=== PATIENT | female | born 1990 | race African-American/Black ===

== ENCOUNTER 2016-10-04 11:27 | Emergency (ER) | payer SELFPAY ==
[~2016-10-04] VITALS: Ht 162.6 cm; Wt 80.0 kg
[~2016-10-04 11:27] MED LIST: NAPR500 PO; SYNT75TA PO
[2016-10-04 11:32] VITALS: BP 132/60; PULSE 72; RESP 15; TEMP 98; O2SAT 99
--- NOTE | 2016-10-04 11:54 | PD ---
HPI Chief Complaint: Abdominal Pain Time Seen by Provider: 11:53 Travel History International Travel<30 days: No Contact w/Intl Traveler<30days: No Traveled to known affect area: No History of Present Illness HPI Patient is a 26-year-old female presented to emergency room evaluation of abdominal pain and left lower back pain. Patient states this started about an hour prior to arrival. She stated stabbing in nature and a 6 out of 10 at its worst. Currently she reports her pain is better. She denies any nausea, vomiting, fever, chills, change in bowel habits, dysuria, frequency. She reports a history of ovarian cysts with rupture about 2 years ago. She denies any vaginal discharge, her last menstrual cycle was 2 weeks ago. [facility] Past Medical History Anemia: Yes Autoimmune Disease: No Heart Rhythm Problems: Yes (H/O) Cancer: No Cardiovascular Problems: No Diminished Hearing: No Gastrointestinal Disorders: No Genitourinary: No Immune Disorder: No Implanted Vascular Access Dvce: No Musculoskeletal: No Neurologic: No Psychiatric: No Reproductive: No Respiratory: No Thyroid Disease: Yes (GOITER/ HYPOTHYRIOD) ?: Not LMP: AUG 2016 : 0 Past Surgical History Other Surgery: No Social History Alcohol Use: Yes (occ.) Tobacco Use: No Substance Use: No Allergies-Medications (Allergen,Severity, Reaction): Coded Allergies: No Known Allergies (Verified , 09/21/15) Reported Meds & Prescriptions Reported Meds & Active Scripts Active [place] (Hydrocodone-Acetaminophen) 5-325 mg Tab 1 Tab PO Q6H PRN Ibuprofen 600 Mg Tab 600 Mg PO Q6H PRN Naprosyn (Naproxen) 500 Mg Tab 500 Mg PO BID PRN Synthroid 75 mcg (Levothyroxine Sodium) 75 Mcg Tab 1 Tab PO DAILY Review of Systems Except as stated in HPI: all other systems reviewed are Neg General / Constitutional: No: Fever, Chills HENT: No: Headaches Cardiovascular: No: Chest Pain or Discomfort Respiratory: No: Shortness of Breath Gastrointestinal: Positive: Abdominal Pain, No: Nausea, Vomiting, Diarrhea, Changes in Bowel Habits, Loss of Appetite (suprapubic) Genitourinary: No: Frequency, Dysuria, Discharge, Vaginal Bleeding Physical Exam Narrative GENERAL: Well developed, well-nourished, alert female. Resting comfortably in no acute distress. SKIN: Warm and dry. HEAD: Atraumatic. Normocephalic. EYES: Pupils equal and round. No scleral icterus. No injection or drainage. ENT: No nasal bleeding or discharge. Mucous membranes pink and moist. NECK: Trachea midline. No JVD. CARDIOVASCULAR: Regular rate and rhythm. No murmur appreciated. RESPIRATORY: No accessory muscle use. Clear to auscultation. Breath sounds equal bilaterally. GASTROINTESTINAL: Abdomen soft, tender to palpation in suprapubic region, nondistended. Hepatic and splenic margins not palpable. Positive bowel sounds, no CVAT bilaterally. MUSCULOSKELETAL: No obvious deformities. No clubbing. No cyanosis. No edema. NEUROLOGICAL: Awake and alert. No obvious cranial nerve deficits. Motor grossly within normal limits. Normal speech. PSYCHIATRIC: Appropriate mood and affect; insight and judgment normal. Data Data Last Documented VS Vital Signs Date Time Temp Pulse Resp B/P Pulse Ox O2 Delivery O2 Flow Rate FiO2 10/04/16 15:19 77 16 132/65 100 10/04/16 11:32 98.0 Orders Complete Blood Count With Diff (10/04/16 11:50) Comprehensive Metabolic Panel (10/04/16 11:50) Urinalysis - C+S If Indicated (10/04/16 11:50) Us Pelvis Comp Family Independence Case Manager/Non-Preg (10/04/16 ) Ed Urine Pregnancytest Poc (10/04/16 11:50) Ibuprofen (Motrin) (10/04/16 13:45) Labs Laboratory Tests Test 10/04/16 12:00 White Blood Count 4.0 TH/MM3 Red Blood Count 3.96 MIL/MM3 Hemoglobin 9.4 GM/DL Hematocrit 30.3 % Mean Corpuscular Volume 76.6 FL Mean Corpuscular Hemoglobin 23.8 PG Mean Corpuscular Hemoglobin 31.1 % Concent Red Cell Distribution Width 17.1 % Platelet Count 301 TH/MM3 Mean Platelet Volume 7.5 FL Neutrophils (%) (Auto) 42.9 % Lymphocytes (%) (Auto) 44.1 % Monocytes (%) (Auto) 10.5 % Eosinophils (%) (Auto) 1.3 % Basophils (%) (Auto) 1.2 % Neutrophils # (Auto) 1.7 TH/MM3 Lymphocytes # (Auto) 1.8 TH/MM3 Monocytes # (Auto) 0.4 TH/MM3 Eosinophils # (Auto) 0.1 TH/MM3 Basophils # (Auto) 0.0 TH/MM3 CBC Comment AUTO DIFF Differential Comment AUTO DIFF CONFIRMED Ovalocytes 1+ Urine Color COLORLESS Urine Turbidity HAZY Urine pH 7.0 Urine Specific [place] 1.006 Urine Protein NEG mg/dL Urine Glucose (UA) NEG mg/dL Urine Ketones NEG mg/dL Urine Occult Blood NEG Urine Nitrite NEG Urine Bilirubin NEG Urine Urobilinogen LESS THAN 2.0 MG/DL Urine Leukocyte Esterase MOD Urine RBC LESS THAN 1 /hpf Urine WBC 3 /hpf Urine Squamous Epithelial 3 /hpf Cells Urine Bacteria RARE /hpf Microscopic Urinalysis Comment CULT NOT INDICATED Sodium Level 138 MEQ/L Potassium Level 4.0 MEQ/L Chloride Level 106 MEQ/L Carbon Dioxide Level 23.1 MEQ/L Anion Gap 9 MEQ/L Blood Urea Nitrogen 10 MG/DL Creatinine 0.71 MG/DL Estimat Glomerular Filtration 119 ML/MIN Rate Random Glucose 93 MG/DL Calcium Level 8.9 MG/DL Total Bilirubin 0.4 MG/DL Aspartate Amino Transf 15 U/L (AST/SGOT) Alanine Aminotransferase 22 U/L (ALT/SGPT) Alkaline Phosphatase 59 U/L Total Protein 8.6 GM/DL Albumin 3.7 GM/DL MDM Medical Decision Making Medical Screen Exam Complete: Yes Emergency Medical Condition: Yes Interpretation(s) Vital Signs Date Time Temp Pulse Resp B/P Pulse Ox O2 Delivery O2 Flow Rate FiO2 10/04/16 11:32 98.0 72 15 132/60 99 Differential Diagnosis Urinary tract infection versus ovarian cyst versus diverticulitis versus other Narrative Course Patient is a 26-year-old female presenting to emergency for evaluation of abdominal pain that started approximately 1 hour prior to arrival. Patient is tender to palpation superpubic region on exam. Workup initiated in triage, care patient will be transferred to a provider when a medical bed is available. Scripts Hydrocodone-Acetaminophen ([place])5-325 mg Tab1 Tab PO Q6H PRN (PAIN) #12 TAB Ref 0 Prov:Twin Duong MD 10/04/16 Ibuprofen 600 Mg [id number] Mg PO Q6H PRN (Pain/Inflammation) #20 TAB Ref 0 Prov:Twin Duong MD 10/04/16 Erika Pruett Oct 04, 2016 11:54
[2016-10-04 12:28] LABS: AUTOMATED NEUTROPHIL # 1.7 TH/MM3 (1.8-7.7); BASOPHIL % 1.2 % (0.0-2.0); EOSINOPHIL # 0.1 TH/MM3 (0-0.4); EOSINOPHIL % 1.3 % (0.0-4.0); HEMATOCRIT 30.3 % (35.0-46.0); LYMPH % 44.1 % (9.0-44.0); LYMPHOCYTE # 1.8 TH/MM3 (1.0-4.8); MEAN CELL VOLUME 76.6 FL (80.0-100.0); MEAN CORPUSCULAR HEMOGLOBIN 23.8 PG (27.0-34.0); MEAN CORPUSCULAR HGB CONC 31.1 % (32.0-36.0); MONO % 10.5 % (0.0-8.0); NEUT % 42.9 % (16.0-70.0); PLATELET COUNT 301 TH/MM3 (150-450); RED BLOOD COUNT 3.96 MIL/MM3 (4.00-5.30); RED CELL DISTRIBUTION WIDTH 17.1 % (11.6-17.2)
[2016-10-04 12:32] LABS: HEMO FLAGS AUTO DIFF
[2016-10-04 12:36] LABS: BACTERIA, URINE RARE /hpf; BLOOD, URINE NEG (NEG); COMMENT (UR) CULT NOT INDICATED; CULTURE IF INDICATED CULT NOT INDICATED; GLUCOSE,URINE NEG (NEG); KETONE, URINE NEG (NEG); NITRITE,URINE NEG (NEG); SQUAMOUS EPITHELIAL CELL URINE 3 /hpf (0-5); URINE COLOR COLORLESS (YELLW/STRAW)
[2016-10-04 12:49] LABS: ANION GAP 9 MEQ/L (5-15); AST (GOT) 15 U/L (15-37); BICARBONATE 23.1 MEQ/L (21.0-32.0); BLOOD UREA NITROGEN 10 MG/DL (7-18); CHLORIDE 106 MEQ/L (98-107); GLOMERULAR FILTRATION RATE 119 ML/MIN (>89); SODIUM (NA) 138 MEQ/L (136-145)
[2016-10-04 12:53] LABS: ALKALINE PHOSPHATASE 59 U/L (45-117); ALT (GPT) 22 U/L (10-53); TOTAL BILIRUBIN ADULT 0.4 MG/DL (0.2-1.0)
[2016-10-04 13:10] LABS: OVALOCYTES 1+ (NORMAL); SCAN/DIFF AUTO DIFF CONFIRMED
[2016-10-04] MEDS ORDERED: IBUPROFEN 600 MG TAB PO ONE (13:45)
--- NOTE | 2016-10-04 13:57 | RADRPT ---
EXAM DATE/TIME: 10/04/2016 13:03 [place] COMPARISON: US PELVIS,COMP,W DOPPLER, May 23, 2015, 7:12. CT ABDOMEN & PELVIS W CONTRAST, September 21, 2015, 3:44. INDICATIONS : Lower back and midline pelvic pain. MEDICAL HISTORY : Hypothyroidism. Goiter. Ovarian cyst. SURGICAL HISTORY : None. ENCOUNTER: Initial ACUITY: 1 day PAIN SCORE: 4/10 LOCATION: Bilateral pelvis MEASUREMENTS: UTERUS: 12.1 x 5.7 x 4.7 cm ENDOMETRIAL STRIPE: 15 mm RIGHT OVARY: 4.0 x 4.0 x 4.9 cm LEFT OVARY: 3.9 x 2.7 x 2.5 cm FINDINGS: UTERUS: The myometrium has homogeneous echotexture without mass.There is a 1.1 cm nabothian cyst seen. The u terus is retroverted. RIGHT OVARY: There is a 4.1 x 3.1 x 2.8 cm complex cystic mass of the right ovary. LEFT OVARY: Ovary contains no mass or significant cystic lesion. MISCELLANEOUS: There is a small amount of free fluid. CONCLUSION: 4.1 cm complex mass the right ovary. This is nonspecific. It likely represents a benign process such as a hemorrhagic cyst. It should be followed with ultrasound in 6-12 weeks. Sam Anderson MD on October 04, 2016 at 13:47 Board Certified Radiologist. This report was verified electronically.
[2016-10-04] MEDS ORDERED: IBUP-232 PO (14:37)
[2016-10-04] MEDS ORDERED: NORC5TAB PO (14:37)
--- NOTE | 2016-10-04 14:37 | PD ---
Physical Exam Date Seen by Provider: Oct 04, 2016 Time Seen by Provider: 14:35 Narrative 26-year-old Ana female who was initially evaluated in triage by the mid-level provider. Please refer to the initial history, physical, diagnostic evaluation, and treatment modality plan. Patient was signed out with ultrasound of the pelvis pending for possible ovarian cyst. Data Data Last Documented VS Vital Signs Date Time Temp Pulse Resp B/P Pulse Ox O2 Delivery O2 Flow Rate FiO2 10/04/16 11:32 98.0 72 15 132/60 99 Orders Complete Blood Count With Diff (10/04/16 11:50) Comprehensive Metabolic Panel (10/04/16 11:50) Urinalysis - C+S If Indicated (10/04/16 11:50) Us Pelvis Comp Treating Machine Operator/Non-Preg (10/04/16 ) Ed Urine Pregnancytest Poc (10/04/16 11:50) Ibuprofen (Motrin) (10/04/16 13:45) Labs Laboratory Tests Test 10/04/16 12:00 White Blood Count 4.0 TH/MM3 Red Blood Count 3.96 MIL/MM3 Hemoglobin 9.4 GM/DL Hematocrit 30.3 % Mean Corpuscular Volume 76.6 FL Mean Corpuscular Hemoglobin 23.8 PG Mean Corpuscular Hemoglobin 31.1 % Concent Red Cell Distribution Width 17.1 % Platelet Count 301 TH/MM3 Mean Platelet Volume 7.5 FL Neutrophils (%) (Auto) 42.9 % Lymphocytes (%) (Auto) 44.1 % Monocytes (%) (Auto) 10.5 % Eosinophils (%) (Auto) 1.3 % Basophils (%) (Auto) 1.2 % Neutrophils # (Auto) 1.7 TH/MM3 Lymphocytes # (Auto) 1.8 TH/MM3 Monocytes # (Auto) 0.4 TH/MM3 Eosinophils # (Auto) 0.1 TH/MM3 Basophils # (Auto) 0.0 TH/MM3 CBC Comment AUTO DIFF Differential Comment AUTO DIFF CONFIRMED Ovalocytes 1+ Urine Color COLORLESS Urine Turbidity HAZY Urine pH 7.0 Urine Specific [place] 1.006 Urine Protein NEG mg/dL Urine Glucose (UA) NEG mg/dL Urine Ketones NEG mg/dL Urine Occult Blood NEG Urine Nitrite NEG Urine Bilirubin NEG Urine Urobilinogen LESS THAN 2.0 MG/DL Urine Leukocyte Esterase MOD Urine RBC LESS THAN 1 /hpf Urine WBC 3 /hpf Urine Squamous Epithelial 3 /hpf Cells Urine Bacteria RARE /hpf Microscopic Urinalysis Comment CULT NOT INDICATED Sodium Level 138 MEQ/L Potassium Level 4.0 MEQ/L Chloride Level 106 MEQ/L Carbon Dioxide Level 23.1 MEQ/L Anion Gap 9 MEQ/L Blood Urea Nitrogen 10 MG/DL Creatinine 0.71 MG/DL Estimat Glomerular Filtration 119 ML/MIN Rate Random Glucose 93 MG/DL Calcium Level 8.9 MG/DL Total Bilirubin 0.4 MG/DL Aspartate Amino Transf 15 U/L (AST/SGOT) Alanine Aminotransferase 22 U/L (ALT/SGPT) Alkaline Phosphatase 59 U/L Total Protein 8.6 GM/DL Albumin 3.7 GM/DL [facility] Medical Record Reviewed: Yes Supervised Visit with CHINO: Yes Interpretation(s) Ultrasound of the pelvis complete reveals a 4.1 cm complex mass of the right ovary. This is nonspecific. It likely represents a benign process such as hemorrhagic cyst. It should be followed with ultrasound in 6-12 weeks. Laboratory Tests Test 10/04/16 12:00 White Blood Count 4.0 TH/MM3 Red Blood Count 3.96 MIL/MM3 Hemoglobin 9.4 GM/DL Hematocrit 30.3 % Mean Corpuscular Volume 76.6 FL Mean Corpuscular Hemoglobin 23.8 PG Mean Corpuscular Hemoglobin 31.1 % Concent Red Cell Distribution Width 17.1 % Platelet Count 301 TH/MM3 Mean Platelet Volume 7.5 FL Neutrophils (%) (Auto) 42.9 % Lymphocytes (%) (Auto) 44.1 % Monocytes (%) (Auto) 10.5 % Eosinophils (%) (Auto) 1.3 % Basophils (%) (Auto) 1.2 % Neutrophils # (Auto) 1.7 TH/MM3 Lymphocytes # (Auto) 1.8 TH/MM3 Monocytes # (Auto) 0.4 TH/MM3 Eosinophils # (Auto) 0.1 TH/MM3 Basophils # (Auto) 0.0 TH/MM3 CBC Comment AUTO DIFF Differential Comment AUTO DIFF CONFIRMED Ovalocytes 1+ Urine Color COLORLESS Urine Turbidity HAZY Urine pH 7.0 Urine Specific [place] 1.006 Urine Protein NEG mg/dL Urine Glucose (UA) NEG mg/dL Urine Ketones NEG mg/dL Urine Occult Blood NEG Urine Nitrite NEG Urine Bilirubin NEG Urine Urobilinogen LESS THAN 2.0 MG/DL Urine Leukocyte Esterase MOD Urine RBC LESS THAN 1 /hpf Urine WBC 3 /hpf Urine Squamous Epithelial 3 /hpf Cells Urine Bacteria RARE /hpf Microscopic Urinalysis Comment CULT NOT INDICATED Sodium Level 138 MEQ/L Potassium Level 4.0 MEQ/L Chloride Level 106 MEQ/L Carbon Dioxide Level 23.1 MEQ/L Anion Gap 9 MEQ/L Blood Urea Nitrogen 10 MG/DL Creatinine 0.71 MG/DL Estimat Glomerular Filtration 119 ML/MIN Rate Random Glucose 93 MG/DL Calcium Level 8.9 MG/DL Total Bilirubin 0.4 MG/DL Aspartate Amino Transf 15 U/L (AST/SGOT) Alanine Aminotransferase 22 U/L (ALT/SGPT) Alkaline Phosphatase 59 U/L Total Protein 8.6 GM/DL Albumin 3.7 GM/DL Differential Diagnosis Differential diagnosis includes ovarian cyst, ovarian torsion, PID, cervicitis, UTI, diverticulitis, nephrolithiasis, pyelonephritis. Narrative Course I, Dr. Duong, have reviewed the advance practice practitioner's documentation and am in agreement, met with the patient face to face, made the diagnosis, and the medical decision making was done by me. *My assessment and Findings: The patient is a 26-year-old Ana female who was initially evaluated in triage by the mid-level provider, please refer to the initial history, physical, diagnostic evaluation, treatment modality plan. Patient claims of intermittent abdominal pain is located the suprapubic region and radiates to the back. She does have a history of similar pain in the past secondary ovarian cyst. The patient states she is currently not sexually active, denies any vaginal bleeding or vaginal discharge. She denies any associated dysuria, frequency, or urgency. Abdominal exam reveals minimal tenderness of the suprapubic region, but no rebound tenderness, guarding , rigidity. The patient had no CVA tenderness. Patient's bedside UA test was negative, laboratory evaluation and UA are negative. Ultrasound reveals right ovarian cyst. Patient be discharged home with pain medications and a copy of her ultrasound report for repeat ultrasound approximately 3-4 months. She is advised to follow-up with a primary physician. Diagnosis Primary Impression: Ovarian cyst Qualified Code: N83.201 - Cyst of right ovary Patient Instructions: General Instructions Additional Instruction: Please provide the patient a copy of her ultrasound results and lab results at discharge. Follow-up with her primary physician. Return if symptoms worsen or progress. Med/Other Pt SpecificInfo: Prescription(s) given Scripts Hydrocodone-Acetaminophen ([place])5-325 mg Tab1 Tab PO Q6H PRN (PAIN) #12 TAB Ref 0 Prov:Twin Duong MD 10/04/16 Ibuprofen 600 Mg [id number] Mg PO Q6H PRN (Pain/Inflammation) #20 TAB Ref 0 Prov:Twin Duogn MD 10/04/16 Disposition: 01 DISCHARGE HOME Condition: Stable Twin Duong MD Oct 04, 2016 14:37
[2016-10-04 15:19] VITALS: BP 132/65
== END 2016-10-04 15:21 | disposition home or self-care (01) ==
LOC: NEPC 11:27
DX: N83.201 Unspecified ovarian cyst, right side (principal); M54.5 Low back pain
CPT/HCPCS: 76856; 80053; 81001; 84703; 85025

== ENCOUNTER 2017-07-26 01:34 | Emergency (ER) | payer SELFPAY ==
[~2017-07-26] VITALS: Ht 162.6 cm; Wt 90.0 kg
[~2017-07-26 01:34] MED LIST changes: +IBUP-232 PO; +NORC5TAB PO
[2017-07-26 01:37] VITALS: BP 126/73; PULSE 95; RESP 16; TEMP 98.6; O2SAT 100
[2017-07-26] MEDS ORDERED: SULFAMETHOXAZOLE-TRIMETHOPRIM DS 800-160 MG TAB PO ONE (02:15)
[2017-07-26] MEDS ORDERED: TETANUS/DIPHTHERIA TOXOID ADULT 0.5 ML VIAL IM ONE (02:15)
[2017-07-26] MEDS ORDERED: BACT800T5 PO (02:16)
[2017-07-26] MEDS ORDERED: DICL75TA PO (02:16)
--- NOTE | 2017-07-26 02:22 | PD ---
HPI Chief Complaint: Skin Problem Time Seen by Provider: 02:12 Travel History International Travel<30 days: No Contact w/Intl Traveler<30days: No Traveled to known affect area: No History of Present Illness HPI 27-year-old black female presents to emergency department with complaints of pain and swelling to her right great toe. She states that this is been present now for the past week. Her she's had been rubbing on her toe. It has now become swollen and red. There is a small amount of drainage. Symptoms are moderate. Some relief with elevation. Worsened with walking and running. She has not had the 10 shot over 5 years. [facility] Past Medical History Narrative Medical Hypothyroidism Anemia: Yes Autoimmune Disease: No Heart Rhythm Problems: Yes (H/O) Cancer: No Cardiovascular Problems: No Diminished Hearing: No Gastrointestinal Disorders: No Genitourinary: No Immune Disorder: No Implanted Vascular Access Dvce: No Musculoskeletal: No Neurologic: No Psychiatric: No Reproductive: No Respiratory: No Thyroid Disease: Yes (HYPOTHYRIOD) Tetanus Vaccination: > 5 Years Influenza Vaccination: No ?: Not LMP: 07/19/2017 : 0 Past Surgical History Surgical History: No Previous Surgery Other Surgery: No Social History Alcohol Use: Yes (occ.) Tobacco Use: No Substance Use: No Allergies-Medications (Allergen,Severity, Reaction): Coded Allergies: No Known Allergies (Verified Adverse Reaction, Unknown, 07/26/17) Reported Meds & Prescriptions Reported Meds & Active Scripts Active Diclofenac Sodium DR (Diclofenac Sodium) 75 Mg Tabdr 75 Mg PO BID Bactrim DS (Sulfamethoxazole-Trimethoprim) 800-160 Mg Tab 1 Tab PO BID [place] (Hydrocodone-Acetaminophen) 5-325 mg Tab 1 Tab PO Q6H PRN Ibuprofen 600 Mg Tab 600 Mg PO Q6H PRN Naprosyn (Naproxen) 500 Mg Tab 500 Mg PO BID PRN Synthroid 75 mcg (Levothyroxine Sodium) 75 Mcg Tab 1 Tab PO DAILY Review of Systems General / Constitutional: No: Fever Eyes: No: Visual changes HENT: No: Headaches Cardiovascular: No: Chest Pain or Discomfort Respiratory: No: Shortness of Breath Gastrointestinal: No: Abdominal Pain Genitourinary: No: Dysuria Musculoskeletal: Positive: Edema, Pain Skin: Positive Rash Neurologic: No: Weakness Psychiatric: No: Depression Endocrine: No: Polydipsia Hematologic/Lymphatic: No: Easy Bruising Physical Exam Narrative GENERAL: This is a well-nourished, well-developed patient, in no apparent distress. SKIN: No rashes, ecchymoses or lesions. Warm and dry. HEAD: Atraumatic. Normocephalic. EYES: PERRL, EOMI, no discharge or injection. No scleral icterus. EARS: Clear NOSE: Nasal turbinates appear normal. THROAT: Mucosa pink and moist. Airway patent. NECK: Trachea midline. supple, moves head freely. LUNGS: Clear to auscultation. CV: Regular in rhythm. ABDOMEN: Soft nontender. EXT: No clubbing cyanosis or edema. Examination of the right great toe reveals swelling to the dorsum. There is a small area of fluctuance, tenderness, erythema with an open area of pus. There is no involvement of the bone, nail or joint. She is able to extend and flex. This appears to be a superficial infected blister Data Data Last Documented VS Vital Signs Date Time Temp Pulse Resp B/P (MAP) Pulse Ox O2 Delivery O2 Flow Rate FiO2 07/26/17 01:37 98.6 95 16 126/73 (90) 100 Orders Orders Sulfamet-Trimeth Ds 800-160 Mg (Bactrim (07/26/17 02:15) Tetanus/Diphtheria Tox Adult (Tetanus/Di (07/26/17 02:15) Ed Discharge Order (07/26/17 02:16) MDM Medical Decision Making Medical Screen Exam Complete: Yes Emergency Medical Condition: Yes Medical Record Reviewed: Yes Differential Diagnosis MDM: High Differential diagnoses: Abscess, folliculitis, cellulitis, lymphangitis, abrasion, contact dermatitis Narrative Course Patient's given tetanus immunization, Bactrim DS by mouth. Dressing applied. This is right great toe infected blister Diagnosis Primary Impression: Infected blister of great toe of right foot Qualified Codes: S90.421A - Blister (nonthermal), right great toe, initial encounter; L08.9 - Local infection of the skin and subcutaneous tissue, unspecified Patient Instructions: General Instructions Additional Instructions: Rest. Elevation. keep clean and dry. Epsom salts soaks 3 times daily Daily wound care with soap, water and Neosporin. Diclofenac and Bactrim DS. Follow-up with a forestry contractor or primary care doctor in one week. Return to the ER for any problems. Med/Other Pt SpecificInfo: Prescription(s) given Scripts Diclofenac Sodium DR (Diclofenac Sodium DR) 75 Mg Tabdr 75 MG PO BID, #14 TAB 0 Refills Prov: Bear York MD 07/26/17 Sulfamethoxazole-Trimethoprim (Bactrim DS) 800-160 Mg Tab 1 TAB PO BID for Infection, #14 TAB 0 Refills Prov: Bear York MD 07/26/17 Disposition: 01 DISCHARGE HOME Condition: Stable Frankie Sahu Jul 26, 2017 02:22
== END 2017-07-26 02:37 | disposition home or self-care (01) ==
LOC: NEPD 01:34
DX: S90.421A Blister (nonthermal), right great toe, initial encounter (principal); L08.9 Local infection of the skin and subcutaneous tissue, unspecified; W22.8XXA Striking against or struck by other objects, initial encounter; E03.9 Hypothyroidism, unspecified; Z23 Encounter for immunization
CPT/HCPCS: 90471; 90714

== ENCOUNTER 2017-08-21 00:53 | Emergency (ER) | payer SELFPAY ==
[~2017-08-21] VITALS: Ht 162.6 cm; Wt 86.2 kg
[~2017-08-21 00:53] MED LIST changes: +BACT800T5 PO; +DICL75TA PO
[2017-08-21 01:00] VITALS: BP_SYST 122; BP_SYST 136; BP_DIAS 75; BP_DIAS 87; PULSE 73; PULSE 79; RESP 12; RESP 14; TEMP 98.1; O2SAT 98; O2SAT 99
[2017-08-21] MEDS ORDERED: LEVO.075 PO (01:49)
--- NOTE | 2017-08-21 02:24 | PD ---
HPI Chief Complaint: Skin Problem Time Seen by Provider: 02:19 Travel History International Travel<30 days: No Contact w/Intl Traveler<30days: No Traveled to known affect area: No History of Present Illness HPI 27-year-old female with 2 days of pruritic rash to both hands. 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 Patient denies any known new glove materials or products or new detergents. Patient denies any other rash. Patient denies any urticaria lip tongue or throat swelling shortness of breath wheezing near syncope syncope dizziness nausea vomiting abdominal pain or abdominal cramping. Patient states she is taking no medications for symptoms. Patient states due to persistent pruritus and spreading of rash to the dorsum and digits of her hands bilaterally she decided to come to the emergency room. Patient denies . Last period was August 02 and normal for her. No new foods detergents lotions creams soaps gloves linens or any known allergens. PFSH Past Medical History Narrative Medical Anemia history of murmur hypothyroidism occasional alcohol use; nursing notes reviewed Anemia: Yes Autoimmune Disease: No Heart Rhythm Problems: Yes (H/O) Cancer: No Cardiovascular Problems: No Diminished Hearing: No Gastrointestinal Disorders: No Genitourinary: No Immune Disorder: No Implanted Vascular Access Dvce: No Musculoskeletal: No Neurologic: No Psychiatric: No Reproductive: No Respiratory: No Thyroid Disease: Yes (HYPOTHYRIOD) Tetanus Vaccination: < 5 Years Influenza Vaccination: Yes ?: Not LMP: 07/31/17 : 0 Past Surgical History Surgical History: No Previous Surgery Other Surgery: No Social History Alcohol Use: Yes (occ.) Tobacco Use: No Substance Use: No Allergies-Medications (Allergen,Severity, Reaction): Coded Allergies: No Known Allergies (Verified Adverse Reaction, Unknown, 08/21/17) Reported Meds & Prescriptions Reported Meds & Active Scripts Active Reported Synthroid (Levothyroxine Sodium) 75 Mcg Tab 75 Mcg PO DAILY Review of Systems Except as stated in HPI: all other systems reviewed are Neg Physical Exam Narrative GENERAL: Well-developed well-nourished female in no acute distress no respiratory distress; no stridor no hoarseness. SKIN: Warm and dry. No vesicles no pustules no petechia no purpura no urticaria no excoriation no erythema HEAD: Normocephalic. EYES: No scleral icterus. No injection or drainage. ENT: Airway is patent NECK: Supple, trachea midline. No JVD or lymphadenopathy. CARDIOVASCULAR: Regular rate and rhythm without murmurs, gallops, or rubs. RESPIRATORY: Breath sounds equal bilaterally. No accessory muscle use. Data Data Last Documented VS Vital Signs Date Time Temp Pulse Resp B/P (MAP) Pulse Ox O2 Delivery O2 Flow Rate FiO2 08/21/17 01:00 98.1 79 14 122/75 (91) 99 Orders Orders Prednisone (Deltasone) (08/21/17 02:30) Diphenhydramine (Benadryl) (08/21/17 02:30) Famotidine (Pepcid) (08/21/17 02:30) MDM Medical Decision Making Medical Screen Exam Complete: Yes Emergency Medical Condition: Yes Medical Record Reviewed: Yes Differential Diagnosis Pruritus, contact dermatitis, allergic dermatitis Narrative Course Patient with contact/allergic dermatitis with drying of skin to the dorsum of the hands bilaterally and proximal digits otherwise disease are neurovascular tendon intact palms are spared no vesicles no pustules no petechia no purpura no urticaria; patient given one-time dose of prednisone 20 mg by mouth Benadryl 50 mg by mouth and Pepcid 20 mg by mouth Patient is stable for outpatient management and follow-up with primary care provider Diagnosis Primary Impression: Allergic dermatitis Referrals: [facility] call for appointment Car Wrecker call for appointment Patient Instructions: General Instructions Departure Forms: Tests/Procedures, Work Release Special Instructions: No work times one day Additional Instructions: Take medication as prescribed Take Benadryl or Zyrtec per package directions for itching Takes Zantac 150 twice daily for 7 days Follow-up with primary care provider/with a health or manager material Return to the emergency department for any concerns or change condition No work times one day Med/Other Pt SpecificInfo: Prescription(s) given Scripts Methylprednisolone Dosepak (Medrol Dosepak) 4 Mg Dspk 4 MG PO DIRECTED, #1 DSPK 0 Refills Per Pharmacist direction Prov: Gissell Medellin MD 08/21/17 Disposition: 01 DISCHARGE HOME Condition: Stable Gissell Medellin MD Aug 21, 2017 02:24
[2017-08-21] MEDS ORDERED: MEDR4PAK PO (02:25)
[2017-08-21] MEDS ORDERED: diphenhydrAMINE HCL 50 MG CAP PO ONE (02:30)
[2017-08-21] MEDS ORDERED: predniSONE 20 MG TAB PO ONE (02:30)
[2017-08-21] MEDS ORDERED: FAMOTIDINE 20 MG TAB PO ONE (02:30)
== END 2017-08-21 02:41 | disposition home or self-care (01) ==
LOC: PHED 00:53
DX: L23.9 Allergic contact dermatitis, unspecified cause (principal); E03.9 Hypothyroidism, unspecified
CPT/HCPCS: 99283; J7512; Q0163

== ENCOUNTER 2017-10-08 22:14 | Emergency (ER) | payer SELFPAY ==
[~2017-10-08] VITALS: Ht 162.6 cm; Wt 88.0 kg
[~2017-10-08 22:14] MED LIST changes: -BACT800T5 PO; -DICL75TA PO; -IBUP-232 PO; +LEVO.075 PO; +MEDR4PAK PO; -NAPR500 PO; -NORC5TAB PO; -SYNT75TA PO
[2017-10-08 22:32] VITALS: BP 117/61; PULSE 97; RESP 20; TEMP 98.5; O2SAT 100
--- NOTE | 2017-10-08 23:10 | PD ---
HPI Chief Complaint: Pain: Acute or Chronic Time Seen by Provider: 23:05 Travel History International Travel<30 days: No Contact w/Intl Traveler<30days: No Traveled to known affect area: No History of Present Illness HPI 27-year-old female presents for evaluation of right foot pain. Symptoms started 1 week ago. She describes it as a pressure along the lateral aspect of the right foot which is reproduced when walking. She reports that she has to walk a lot at work. She denies any injury. She denies any pain in the right ankle, calf, thigh or knee. She denies any numbness or tingling. No other complaints. PFSH Past Medical History Medical History: Denies Significant Hx Anemia: Yes Autoimmune Disease: No Heart Rhythm Problems: Yes (H/O) Cancer: No Cardiovascular Problems: No Diminished Hearing: No Gastrointestinal Disorders: No Genitourinary: No Immune Disorder: No Implanted Vascular Access Dvce: No Musculoskeletal: No Neurologic: No Psychiatric: No Reproductive: No Respiratory: No Thyroid Disease: Yes (HYPOTHYRIOD) ?: Not LMP: 09/20/17 : 0 Past Surgical History Surgical History: No Previous Surgery Other Surgery: No Social History Alcohol Use: Yes (occ.) Tobacco Use: No Substance Use: No Allergies-Medications (Allergen,Severity, Reaction): Coded Allergies: No Known Allergies (Verified Adverse Reaction, Unknown, 08/21/17) Reported Meds & Prescriptions Reported Meds & Active Scripts Active Reported Synthroid (Levothyroxine Sodium) 75 Mcg Tab 75 Mcg PO DAILY Review of Systems Musculoskeletal: Positive: Pain Skin: Positive Other (Denies open wounds) Neurologic: No: Paresthesia Physical Exam Narrative GENERAL: Well-nourished female no acute distress SKIN: Warm and dry. No bruising or soft tissue swelling Extremities: There is mild tenderness to palpation along the lateral margin of the right foot. There is no range of motion limitation, no bruising or soft tissue swelling. Distal sensation, pulses preserved. Data Data Last Documented VS Vital Signs Date Time Temp Pulse Resp B/P (MAP) Pulse Ox O2 Delivery O2 Flow Rate FiO2 10/08/17 22:32 98.5 97 20 117/61 (79) 100 Orders Orders Foot, Complete ([id number]) (10/08/17 ) [facility] Medical Decision Making Medical Screen Exam Complete: Yes Emergency Medical Condition: Yes Medical Record Reviewed: Yes Differential Diagnosis Tendinitis, plantar fasciitis, metatarsal stress fracture Narrative Course X-ray imaging was obtained revealing no acute abnormalities. I suspect the patient has right foot pain secondary to walking at work, likely a tendinitis. Recommended avoiding activities that exacerbate the pain. She is stable for discharge. Diagnosis Primary Impression: Foot pain Additional Instructions: Avoid activities that exacerbate this pain. Ice the affected area 3 times a day 20 minutes at a time, particularly after activity. Take Tylenol or Motrin for pain. Follow-up with primary care physician as needed and return for any emergent medical conditions. Med/Other Pt SpecificInfo: No Change to Meds Disposition: 01 DISCHARGE HOME Condition: Stable [place] Wiley Oct 08, 2017 23:10
--- NOTE | 2017-10-09 00:01 | RADRPT ---
EXAM DATE/TIME: 10/08/2017 23:23 [place] COMPARISON: No previous studies available for comparison. INDICATIONS : Pain on lateral side of right foot. MEDICAL HISTORY : None. SURGICAL HISTORY : None. ENCOUNTER: Initial ACUITY: 1 day PAIN SCORE: 5/10 LOCATION: Right foot FINDINGS: Three view examination of the right foot demonstrates no soft tissue swelling, dislocation, or fractu re. The tarsal bones appear intact. The interphalangeal and metatarsophalangeal joints are intact. The calcaneus is intact. Bony mineralization is normal. CONCLUSION: Negative examination. Van Gore MD on October 08, 2017 at 23:59 Board Certified Radiologist. This report was verified electronically.
== END 2017-10-09 01:07 | disposition home or self-care (01) ==
LOC: NEPD 22:14
DX: M79.671 Pain in right foot (principal)
CPT/HCPCS: 73630; 99283